=== PATIENT | male | born 1990 ===

== ENCOUNTER 2019-02-08 05:18 | Inpatient (IN) | payer OTHER ==
[~2019-02-08] VITALS: Ht 177.8 cm; Wt 102.1 kg
[2019-02-08] VITALS (12 sets, daily range): BP systolic 102–118; BP diastolic 51–77
[~2019-02-08 05:18] MED LIST: CHLORZOXAZONE500 MG PO; NORCO 10-325 T1 EACH ORAL
[2019-02-08] MEDS ORDERED: LR 1000ml 1,000 ML IVLG SCH (06:32)
--- NOTE | 2019-02-08 06:33 | Anethesia Preoperative Eval ---
Anesthesia Pre-op PMH/ROS General Date of Evaluation: Feb 08, 2019 Time of Evaluation: 07:01 Anesthesiologist: Josey ASA Score: ASA 2 Mallampati Score Class I : Soft palate, uvula, fauces, pillars visible Class II: Soft palate, uvula, fauces visible Class III: Soft palate, base of uvula visible Class IV: Only hard plate visible Mallampati Classification: Class II Surgeon: Ami Diagnosis: Back Pain Surgical Procedure: Right L5-S1 Microdiscectomy, Hemilaminotomy, Baxano Anesthesia History: none Family History: no anesthesia problems Allergies: Coded Allergies: No Known Allergies (Unverified , 02/08/19) Medications: see eMAR Patient NPO?: Yes NPO Date: Feb 07, 2019 NPO Time: 2329 Past Medical History Neurologic/Psychiatric: Reports: other - Panic Attack PSxH Narrative: Gastric Sleeve Anesthesia Pre-op Phys. Exam Physician Exam Last Vital Signs Date Time Temp Pulse Resp B/P (MAP) Pulse Ox O2 Delivery O2 Flow Rate FiO2 02/08/19 05:44 97.8 58 18 115/69 (84) 98 Constitutional: NAD Neurologic: CN 2-12 intact Cardiovascular: RRR Respiratory: CTA Gastrointestinal: S/NT/ND Airway Exam Mallampati Score: Class II MO: full ROM: full Teeth: intact Anesthesia Pre-op A/P Risk Assessment & Plan Assessment: ASA 2 Plan: GA, SED, GlideScope Go Status Change Before Surgery: No Pre-Antibiotics Dru Grams Ancef IV Given Within 1 Hr of Incision: Yes Time Given: 07:21 Zak Dowling MD Feb 08, 2019 06:33
[2019-02-08] MEDS ORDERED: Zemuron 50mg/5ml Inj IV ONE (06:35)
[2019-02-08] MEDS ORDERED: Lidocaine 1% Plain 30 ml INJ ONE (06:41)
[2019-02-08] MEDS ORDERED: Dexamethasone 4mg/ml vial ONE (06:42)
[2019-02-08] MEDS ORDERED: Sodium Chloride 10ml vial INJ ONE (06:42)
[2019-02-08] MEDS ORDERED: Lidocaine 1% MPF 10mg/ml 5ml ONE (06:42)
[2019-02-08] MEDS ORDERED: oxyCODONE HCL/Acetaminophen 5/325mg ORAL PRN (06:45)
[2019-02-08] MEDS ORDERED: Midazolam 2mg/2ml Inj IVP PRN (06:45)
[2019-02-08] MEDS ORDERED: Vancomycin 1gm vial IVPB ONE (06:45)
[2019-02-08] MEDS ORDERED: Ketorolac 30mg Inj IV PRN ×2 (06:45)
[2019-02-08] MEDS ORDERED: Metoclopramide 10mg/2ml Inj IVP PRN ×2 (06:45→07:30)
[2019-02-08] MEDS ORDERED: DiphenhydrAMINE 50mg/ml Inj IVP PRN (06:45)
[2019-02-08] MEDS ORDERED: fentaNYL 100 mcg/2 mL IV PRN (06:45)
[2019-02-08] MEDS ORDERED: Atropine Sulfate 0.4mg/ml inj IVP PRN (06:45)
[2019-02-08] MEDS ORDERED: HYDROcodone/Acetamin 5/325 tab ORAL PRN ×2 (06:45→07:30)
[2019-02-08] MEDS ORDERED: Acetaminophen (Non formulary) 100 ML IV ONE (06:45)
[2019-02-08] MEDS ORDERED: Labetalol 5mg/ml 20ml vial IV PRN (06:45)
[2019-02-08] MEDS ORDERED: HYDROcodone/Acetamin 7.5/325 tab ORAL PRN ×3 (06:45→07:30)
[2019-02-08] MEDS ORDERED: LORazepam Inj 2mg/ml 1ml IV PRN (06:45)
[2019-02-08] MEDS ORDERED: Meperidine 50mg/ml Inj(FOR RIGORS ONLY) IVP PRN (06:45)
[2019-02-08] MEDS ORDERED: Bacitracin 50000 Units Vial ONE (06:46)
[2019-02-08] MEDS ORDERED: Thrombin 5000 units TOPIC ONE ×2 (06:46→08:09)
[2019-02-08] MEDS ORDERED: Gelfoam Size TOPIC ONE (06:46)
[2019-02-08] MEDS ORDERED: Ropivacaine 5mg/ml Vial 30ml INJ ONE (06:46)
[2019-02-08] MEDS ORDERED: Propofol 1,000mg/ 100ml btl IV ONE (07:00)
[2019-02-08] MEDS ORDERED: ceFAZolin sod 2 GM in D5W 110 ML IVPB ONE (07:00)
[2019-02-08] MEDS ORDERED: NS Irrig 1000ml ONE (07:00)
[2019-02-08] MEDS ORDERED: Sterile Water Irrig 1000ml IRRIG ONE (07:00)
[2019-02-08] MEDS ORDERED: LR 1000ml ONE (07:00)
--- NOTE | 2019-02-08 07:23 | Pre-Procedure Note/Attestation ---
Pre-Procedure Note/Attestation Complete Prior to Procedure Planned Procedure: not applicable Procedure Narrative: Right L5S1 microdiscectomy bilateral hemilaminotomy foraminotomy Indications for Procedure Pre-Operative Diagnosis: L5S1 Herniation Attestation I attest that I discussed the nature of the procedure; its benefits; risks and complications; and alternatives (and the risks and benefits of such alternatives ), prior to the procedure, with the patient (or the patient's legal vendor representatives). I attest that, if there was a reasonable possibility of needing a blood transfusion, the patient (or the patient's legal vendor representatives) was given the [facility] standardized written summary, pursuant to the Charli Mary Carmen Blood Safety Act ([place] Health and Safety Code # 1645, as amended). I attest that I re-evaluated the patient just prior to the surgery and that there has been no change in the patient's H&P, except as documented below: David Mueller MD Feb 08, 2019 07:23
--- NOTE | 2019-02-08 07:24 | Brief Operative Note ---
Immediate Post Operative Note Operative Note Chief Complaint: Intractable back pain and radiculopathy Pre-op Diagnosis: L5S1 Herniation Procedure: Right L5S1 microdiscectomy bilateral hemilaminotomy foraminotomy Post-op Diagnosis: same as pre-op Findings: consistent w/pre-op dx studies Surgeon: Ami Reimbursement Counselor: eSrafin Anesthesiologist: Anesthesia: general Specimen: none Complications: none Condition: stable Fluids: IVF Estimated Blood Loss: minimal Drains: none Implant(s) used?: No David Mueller MD Feb 08, 2019 07:24
[2019-02-08] MEDS ORDERED: Morphine Sulfate 2mg/ml Inj(IV/IM USE ONLY) IV PRN (07:30)
[2019-02-08] MEDS ORDERED: Milk of Magnesia 30ml Ud ORAL PRN (07:30)
[2019-02-08] MEDS ORDERED: Chloraseptic Spray 20mL Bottle ORAL PRN (07:30)
[2019-02-08] MEDS ORDERED: Morphine Sulfate 4mg/ml Inj (IV USE ONLY) IV PRN (07:30)
[2019-02-08] MEDS ORDERED: NS Irrig 1000ml IRRIG ONE (08:07)
--- NOTE | 2019-02-08 08:10 | Immediate Post-Op Evaluation ---
Immediate Post-Op Evalulation Immediate Post-Op Evalulation Procedure: Right L5-S1 Microdiscectomy, Hemilaminotomy, Baxano Date of Evaluation: Feb 08, 2019 Time of Evaluation: 09:47 IV Fluids: 800 LR Blood Products: 0 Estimated Blood Loss: 25 Urinary Output: 300 Blood Pressure Systolic: 108 Blood Pressure Diastolic: 59 Pulse Rate: 67 Respiratory Rate: 16 O2 Sat by Pulse Oximetry: 100 Temperature (Fahrenheit): 97.9 Pain Score (1-10): 2 Nausea: No Vomiting: No Complications 0 Patient Status: awake, reacts, patent, extubated, none Hydration Status: adequate Dru grams Ancef IV Given Within 1 Hr of Incision: Yes Time Given: 07:21 Zak Dowling MD Feb 08, 2019 08:10
[2019-02-08] MEDS: Docusate 100mg cap ORAL SCH ×2 (09:00→17:18)
[2019-02-08] MEDS ORDERED: fentaNYL 100 mcg/2 mL IV ONE (09:16)
[2019-02-08] MEDS: Hydromorphone 0.5mg/0.5ml inj IVP PRN ×2 (10:07→10:28)
--- NOTE | 2019-02-08 10:07 | NUR ---
CASE MANAGEMENT:REVIEW 28 YR OLD MALE HERE FOR ELECTIVE SURGERY SI: INTRACTABLE BACK PAIN AND RADICULOPATHY 97.8 67 16 115/69 98% ON RA IS: TO SURGERY FOR: RT L5 S1 MICRODISCECTOMY,BILATERAL HEMILAMINOTOMY FORAMINOTOMY IV ANCEF Q8HRS IV DECADRON Q6HRS IVF@100/HR IV MORPHINE Q3HRS PRN : TO MED/SURG 3 EAST POST OP DCP: RETURN HOME INTERQUAL CRITERIA MET
--- NOTE | 2019-02-08 11:00 | NUR ---
NURSE NOTES: PATIENT HANDOFF RECEIVED FROM STACIE POON.
[2019-02-08] MEDS ORDERED: Naloxone 0.4mg/ml Inj IVP PRN (12:30)
[2019-02-08] MEDS: Morphine Sulfate 4mg/ml Inj (IV USE ONLY) IV PRN ×2 (12:54→15:56)
[2019-02-08] MEDS: NS w/KCl 20mEq 1000ml 1,000 ML IV SCH ×2 (14:06→23:23)
[2019-02-08] MEDS: HYDROmorphone 1mg/ml Carpuject IVP PRN ×3 (14:29→21:03)
[2019-02-08] MEDS: ceFAZolin sod 1 GM in D5W 55 ML IV SCH ×2 (15:30→23:23)
--- NOTE | 2019-02-08 16:01 | NUR ---
P.T NOTE: P.T EVALUATION COMPLETED AND TX INITIATED PER SPINAL PROTOCOL. SEE P.T EVALUATION FOR CURRENT FUNCTIONAL STATUS. SKILLED P.T SERVICE IS WARRANTED TO ENSURE SAFETY AND COMPLIANCE WITH SPINAL PRECAUTIONS.
--- NOTE | 2019-02-08 16:34 | Diagnostic Imaging Report ---
INDICATION: Pain, intraoperative TECHNIQUE: Intraoperative imaging Fluoroscopy time: 16.5 seconds Total dose: 0.03630 mGym2 Total number of images: 6 4 COMPARISON: None FINDINGS: Intraoperative images demonstrate surgical needles are directed over L5 and S1, subsequently had surgical tool projected posterior to the L5-S1 disc. Subsequent images document placement of the Baxano device at L5-S1. IMPRESSION: Intraoperative imaging, as described
[2019-02-08] MEDS: Dexamethasone 4mg/ml vial IVP SCH ×2 (17:17→23:32)
[2019-02-08] MEDS: Docusate Sod/Senna tab ORAL SCH (17:18)
--- NOTE | 2019-02-08 18:00 | Operative Note - Dictated ---
DATE OF OPERATION: 02/08/2019 NOTE: "POOR AUDIO QUALITY" SURGEON: David Mueller MD, Orthopaedic Spine Surgeon. SLEEP TECH SURGEON: Igor Betancourt M.D. ANESTHESIA: General endotracheal anesthesia. PREOPERATIVE DIAGNOSES: 1. Intractable back pain. 2. Intractable leg pain. 3. Worsening radiculopathy. 4. Weakness. 5. Herniated nucleus pulposus, L5-S1 herniation. 6. Neural foraminal stenosis, L5-S1. POSTOPERATIVE DIAGNOSES: 1. Intractable back pain. 2. Intractable leg pain. 3. Worsening radiculopathy. 4. Weakness. 5. Herniated nucleus pulposus, L5-S1 herniation. 6. Neural foraminal stenosis, L5-S1. PROCEDURES PERFORMED: 1. Right-sided L5-S1 microdiscectomy. 2. L5-S1 hemilaminotomy, foraminotomy, and medial facetectomy. 3. L5-S1 neural foraminotomy through a transpedicular intraforaminal approach. 4. Use of intraoperative microscope. 5. Supervision and interpretation of intraoperative fluoroscopy. 6. Supervision and interpretation of somatosensory-evoked potential and free running EMG monitoring. ESTIMATED BLOOD LOSS: Less than 100 mL. COMPLICATIONS: None. INDICATIONS FOR THE PROCEDURE: Shahriar presents for intractable back pain and radiculopathy. The patient tried and failed a prolonged course of conservative management, including but not limited to chiropractic therapy, physical therapy, nonsteroidal anti-inflammatory drugs, medication, ice packs as well as epidural injection. Despite these therapies, the patient still developed recalcitrant pain and elected for definitive management in the form of right-sided L5-S1 microdiscectomy; L5-S1 hemilaminotomy, foraminotomy, and medial facetectomy; L5-S1 neural foraminotomy through a transpedicular intraforaminal approach. We had a long discussion with him regarding definitive surgical treatment options. The patient's MRI demonstrated herniated nucleus pulposus, L5-S1 herniation, and neural foraminal stenosis at L5-S1, and as a result, I felt he would benefit from the discectomy as well as neural foraminotomy at this level. We had a long discussion with the patient regarding the risks, alternatives, and benefits of surgery. Our description of the risks included a discussion in person as well as a signed consent which detailed all pertinent risks and the procedure itself. Briefly, our discussion included but was not limited to infection, bleeding, pseudarthrosis, spinal cord injury, neurovascular injury, dural tear, CSF leak, neuropathy, paralysis, permanent weakness/drop foot, paresthesias blindness, palsy, and weakness. The patient understood there may be a need for revision surgery or additional procedures. Approach-related complications including dysphonia, dysphagia, blindness, permanent vocal cord and neural injury, hematoma, swallowing and breathing difficulty. Medical complications including liver, kidney, shock, and cardiopulmonary failure. Anesthesia complications including , swelling. Damage to the musculature, larynx (voice injury or loss), esophagus (throat), trachea, blood vessels and muscles (muscular sprain) and lungs (pneumothorax) during this surgical procedure. Injury to deeper structures may be temporary or permanent. The patient understood these and elected to proceed. A written and verbal consent was given. We discussed the pros and cons of all the alternatives. We discussed the uncertainties associated with the decision. Afterwards, I assessed the patient's understanding and explored their preferences. All questions were answered and no guarantees were given. Medical clearance was obtained prior to surgery. INTRAOPERATIVE FINDINGS: There was a tear noted in the posterior longitudinal ligament on the right side, which was approximately 20 degrees with PLL through this. There was clear migration of nucleus pulposus tissue which had been encroaching on the exiting and traversing nerve roots at L5-S1 in the neural foraminal length. This was carefully resected. The disc itself was soft, not calcified or hardened in any way. The disc space itself was tall and it was not collapsed. The disc material was mobile and free-flowing with its clear base connecting it to the nuclear tissue itself thereby making it a herniation and not a simple disc bulge. There was neural foraminal stenosis which . DESCRIPTION OF PROCEDURE: Under the benefit of general endotracheal anesthesia and with the assistance of the entire operative team, the patient was moved from the rney onto the operative table in the prone position on a Александр frame. The head was secured and positioned appropriately. Bilateral arms were secured with Gel Pads and foam and all bony prominences were padded. The bilateral lower extremity SCD and ROSEANN hose were placed for DVT prophylaxis. A surgical timeout was called which corroborated our planned procedure. Preoperative antibiotics were administered within 30 minutes of the incision for prophylaxis. Decadron was given for preoperative steroids. Using lateral radiography, the operative level was delineated. An incision was marked based on our interpretation of lateral radiography and afterwards the body was prepped and draped in the usual sterile manner. The family was notified that we were ready to commence surgery and were called in the waiting room hourly for updates. An incision was based on our lateral fluoroscopic image to center the incision at the L5-S1 interspace. The wound was prepped and draped in the usual sterile fashion. Using a scalpel, a midline incision was taken down through the skin and subcutaneous tissues until the overlying hemilamina of L5-S1 were visualized. Next, using meticulous hemostasis, hemilaminotomies were dissected and retractors were placed. Using a [place] dental, we confirmed placement at the L5-S1 interspace. We next turned our attention to our decompression. A standard hemilaminotomy, foraminotomy, medial facetectomy was performed at each level in standard fashion using a Midas-Arpan type AM8 drill bit, straight and angled curettage, and Kerrison 4 rongeurs until the lateral thecal sac margin and traversing nerve root was visualized. All remainders of the ligamentum flavum and lateral bony margins were resected in total with angled curettage and Kerrison 4 rongeurs until the lateral thecal sac margin and traversing nerve root was visualized and decompressed. We next turned our attention toward our L5-S1 microdiscectomy on the right side. A [place] 4 was used to gently mobilize the thecal sac medially and this was held retracted with a bayonetted nerve root retractor. It was at this point that we noted a large broad-based disc protrusion with encroachment dorsally on the thecal sac neural foraminal contents. A bayonet and nerve root retractor was then placed carefully to retract the thecal sac and a discectomy was performed using a combination of a long-handled 15 blade scalpel, downgoing and straight pituitaries, and downgoing curettage. Afterward, the disc space was irrigated twice with 20 mL of antibiotic-impregnated saline. All loose and free-floating disc fragments were carefully resected with a narrow pituitary. Having been satisfied with our decompression after our discectomy of all neural elements, we next turned our attention to our neural foraminoplasty/foraminotomy. This was performed through a transpedicular intraforaminal approach using an access probe followed by a neuro-check device, which confirmed ventral placement of our nerve root. Once we confirmed we were safe, we next turned our attention towards placement of our size 10 file under direct microscopic visualization and under lateral fluoroscopy. Using pre-reciprocation and post-reciprocation imaging, we were able to visualize our direct decompression given the reciprocation allowed for re-creation of the neural foraminal arch at L5-S1. Afterward, hemostasis was obtained with 60 mL of antibiotic-impregnated saline followed by FloSeal and Gelfoam. After sponge and needle count were found to be correct, next we turned our attention to closure. Closure consisted of 1-0 Vicryl in standard interrupted fashion. Zosyn was placed deep to the fascia and superficial to the fascia for antibiotic prophylaxis. Skin closure was performed with 2-0 Vicryl in interrupted fashion followed by a running Monocryl for the skin. Final dressings consisted of Dermabond for the superficial skin, Telfa, and Tegaderm. The patient tolerated the procedure well. The patient was extubated after the conclusion of surgery without incident. We discussed the findings of the surgery with the family upon completion of the case. At this point, the patient will be transferred to the spine floor for further observation. David Mueller M.D. DR: Jona JOB#: [id number] CC:
--- NOTE | 2019-02-08 19:30 | Operative Note - Dictated ---
DATE OF OPERATION: 02/08/2019 NOTE: "POOR AUDIO QUALITY" SURGEON: David Mueller M.D., Orthopaedic Spine Surgeon. BLIND HANGER SURGEON: Igor Betancourt M.D. ANESTHESIA: General endotracheal anesthesia. PREOPERATIVE DIAGNOSES: 1. Intractable back pain. 2. Intractable leg pain. 3. Worsening radiculopathy. 4. Weakness. 5. Herniated nucleus pulposus, L5-S1 herniation. 6. Neural foraminal stenosis, L5-S1. POSTOPERATIVE DIAGNOSES: 1. Intractable back pain. 2. Intractable leg pain. 3. Worsening radiculopathy. 4. Weakness. 5. Herniated nucleus pulposus, L5-S1 herniation. 6. Neural foraminal stenosis, L5-S1. PROCEDURES PERFORMED: 1. Right-sided microdiscectomy. 2. L5-S1 hemilaminotomy, foraminotomy and medial facetectomy. 3. L5-S1 neural foraminotomy through a transpedicular intraforaminal approach. 4. Use of intraoperative microscope. 5. Supervision and interpretation of intraoperative fluoroscopy. 6. Supervision and interpretation of somatosensory-evoked potential and free-running EMG monitoring. ESTIMATED BLOOD LOSS: Less than 100 mL. COMPLICATIONS: None. INDICATIONS FOR THE PROCEDURE: Shahriar presents for intractable back pain and radiculopathy. The patient tried and failed a prolonged course of conservative management, including but not limited to chiropractic therapy, physical therapy, nonsteroidal anti-inflammatory drugs, medication, ice packs as well as epidural injection. Despite these therapies, the patient still developed recalcitrant pain and elected for definitive management in the form of right-sided microdiscectomy; L5-S1 hemilaminotomy, foraminotomy and medial facetectomy; L5-S1 neural foraminotomy through a transpedicular intraforaminal approach. We had a long discussion with him regarding definitive surgical treatment options. The patient's MRI demonstrated herniated nucleus pulposus, L5-S1 herniation; neural foraminal stenosis, L5-S1, and as a result, I felt he would benefit from the discectomy as well as neural foraminotomy at this level. We had a long discussion with the patient regarding the risks, alternatives, and benefits of surgery. Our description of the risks included a discussion in person as well as a signed consent which detailed all pertinent risks and the procedure itself. Briefly, our discussion included but was not limited to infection, bleeding, pseudarthrosis, spinal cord injury, neurovascular injury, dural tear, CSF leak, neuropathy, paralysis, permanent weakness/drop foot, paresthesias blindness, palsy, and weakness. The patient understood there may be a need for revision surgery or additional procedures. Approach-related complications including dysphonia, dysphagia, blindness, permanent vocal cord and neural injury, hematoma, swallowing and breathing difficulty. Medical complications including liver, kidney, shock, and cardiopulmonary failure. Anesthesia complications including , swelling. Damage to the musculature, larynx (voice injury or loss),esophagus (throat), trachea, blood vessels and muscles (muscular sprain) and lungs (pneumothorax) during this surgical procedure. Injury to deeper structures may be temporary or permanent. The patient understood these and elected to proceed. A written and verbal consent was given. We discussed the pros and cons of all the alternatives. We discussed the uncertainties associated with the decision. Afterward, I assessed the patient's understanding and explored his preferences. All questions were answered and no guarantees were given. Medical clearance was obtained prior to surgery. INTRAOPERATIVE FINDINGS: There was a tear noted in the posterior longitudinal ligament on the right side which was approximately 20 degrees through this. There was clear migration of nuclear pulposus tissue which has been encroaching on the exiting and traversing nerve roots at L5-S1 and the neural foraminal elements. This was carefully resected. The disc itself was soft, not calcified or hardened in any way. The disc space itself was tall. It was not collapsed. The disc material was mobile and free-flowing with its base connecting it to the nuclear tissue itself thereby making it a herniation and not a simple disc bulge. There was neural foraminal stenosis which . DESCRIPTION OF PROCEDURE: Under the benefit of general endotracheal anesthesia and with the assistance of the entire operative team, the patient was moved from the rney onto the operative table in the prone position on a Александр frame. The head was secured and positioned appropriately. Bilateral arms were secured with Gel Pads and foam and all bony prominences were padded. The bilateral lower extremity SCD and ROSEANN hose were placed for DVT prophylaxis. A surgical timeout was called which corroborated our planned procedure. Preoperative antibiotics were administered within 30 minutes of the incision for prophylaxis. Decadron was given for preoperative steroids. Using lateral radiography, the operative levels were delineated. An incision was marked based on our interpretation of lateral radiography and afterward the body was prepped and draped in the usual sterile manner. The family was notified that we were ready to commence surgery and were called in the waiting room hourly for updates. An incision was based on our lateral fluoroscopic image to center the incision at the L5-S1 interspace. The wound was prepped and draped in the usual sterile fashion. Using a scalpel, a midline incision was taken down through the skin and subcutaneous tissues until the overlying hemilamina of L5-S1 were visualized. Next, using meticulous hemostasis, hemilamotomies were dissected and retractors were placed. Using a [place] dental, we confirmed placement at the L5-S1 interspace. We next turned our attention to our decompression. A standard hemilaminotomy, foraminotomy, medial facetectomy was performed at each level in standard fashion using a Midas-Arpan type AM8 drill bit, straight and angled curettage, and Kerrison 4 rongeurs until the lateral thecal sac margin and traversing nerve root was visualized. All remainders of the ligamentum flavum and lateral bony margins were resected in total with angled curettage and Kerrison 4 rongeurs until the lateral thecal sac margin and traversing nerve root was visualized and decompressed. We next turned our attention toward our L5-S1 microdiscectomy on the right side. A [place] 4 was used to gently mobilize the thecal sac medially and this was held retracted with a bayonetted nerve root retractor. It was at this point that we noted a large broad-based disc protrusion with encroachment dorsally on the thecal sac neural foraminal contents. A bayonet and nerve root retractor was then placed carefully to retract the thecal sac and a discectomy was performed using a combination of a long-handled 15 blade scalpel, downgoing and straight pituitaries and downgoing curettage. Afterward, the disc space was irrigated twice with 20 mL of antibiotic-impregnated saline. All loose and free-floating disc fragments were carefully resected with a narrow pituitary. Having been satisfied with our decompression after our discectomy of all neural elements, we next turned our attention to our neural foraminoplasty/foraminotomy. This was performed through a transpedicular intraforaminal approach using an access probe followed by a neuro-check device, which confirmed ventral placement of our nerve root. Once we confirmed we were safe, we next turned our attention towards placement of our size 10 file under direct microscopic visualization and under lateral fluoroscopy. Using pre-reciprocation and post-reciprocation imaging, we were able to visualize our direct decompression given the reciprocation allowed for re-creation of the neural foraminal arch at L5-S1. Afterward, hemostasis was obtained with 60 mL of antibiotic-impregnated saline followed by FloSeal and Gelfoam. After sponge and needle count were found to be correct, next we turned our attention to closure. Closure consisted of 1-0 Vicryl in standard interrupted fashion. Zosyn was placed deep to the fascia and superficial to the fascia for antibiotic prophylaxis. Skin closure was performed with 2-0 Vicryl in interrupted fashion followed by a running Monocryl for the skin. Final dressings consisted of Dermabond for the superficial skin, Telfa, and Tegaderm. The patient tolerated the procedure well. The patient was extubated after the conclusion of surgery without incident. We discussed the findings of the surgery with the family upon completion of the case. At this point, the patient will be transferred to the spine floor for further observation. David Mueller M.D. DR: Jona JOB#: [id number] CC:
--- NOTE | 2019-02-08 19:30 | NUR ---
NURSE NOTES: Receive a report from STACIE Abudl. Pt is awake and alert. No acute distress noted. Op site is clear without bleeding signs. Leave call light within reach. Will continue to monitor.
--- NOTE | 2019-02-08 19:45 | NUR ---
HAND-OFF: Report given to STACIE FOX.PATIENT RECEIVED RESTING IN BED WITH PRESCRIBED FLUIDS RUNNING AT 100ML/HOUR. NO PHYSICAL SIGNS OF DISTRESS.
--- NOTE | 2019-02-08 20:02 | Cardiology Progress Note ---
Assessment/Plan Assessment/Plan [id number] seen at request of dr radha coyne well pos top dvt ppx early ambulation pain meds antiemetic as needed home soon Objective Last 24 Hour Vital Signs Date Time Temp Pulse Resp B/P (MAP) Pulse Ox O2 Delivery O2 Flow Rate FiO2 02/08/19 11:30 97.6 50 18 103/56 (72) 96 02/08/19 11:00 97.4 61 18 115/62 (79) 97 02/08/19 10:58 97.9 02/08/19 10:43 97.9 61 18 102/55 96 Nasal Cannula 3 02/08/19 10:28 63 18 107/57 97 Nasal Cannula 3 02/08/19 10:17 69 18 108/61 97 Nasal Cannula 3 02/08/19 10:07 63 14 112/64 98 Nasal Cannula 3 02/08/19 09:56 59 15 106/54 99 Simple Mask 6 02/08/19 09:46 65 15 106/59 99 Simple Mask 6 02/08/19 09:41 64 17 102/51 99 Simple Mask 6 02/08/19 09:36 97.9 64 14 108/77 99 Simple Mask 6 02/08/19 09:34 67 16 100 02/08/19 05:44 97.8 58 18 115/69 (84) 98 Intake and Output 02/07/19 02/08/19 19:00 07:00 # Voids 1 Kadeem Delcid MD Feb 08, 2019 20:02
--- NOTE | 2019-02-08 21:00 | NUR ---
NURSE NOTES: Administer pain medication as ordered. Reapply SCDs on bilateral legs. Encourage deep breathing and coughing. Will continue to monitor.
--- NOTE | 2019-02-08 22:30 | Consultation ---
DATE OF CONSULTATION: 02/08/2019 INTERNAL MEDICINE AND CARDIOLOGY EVALUATION CONSULTING PHYSICIAN: Kadeem Delcid M.D. REFERRING PHYSICIAN: David Mueller M.D. REASON FOR REFERRAL: Postoperative medical care. HISTORY OF PRESENT ILLNESS: This is a young gentleman with history of herniated nucleus pulposus with pain and radiculopathy, who underwent microdiskectomy and hemilaminotomy by Dr. Mueller. He asked me to follow the patient postoperatively for medical issues. The patient is now being seen. He seems to be doing well. He has pain postoperatively. He does not have any chest pain or shortness of breath. No PND. No orthopnea. No palpitations. No dizziness or lightheadedness. No sore throat. PAST MEDICAL HISTORY: Fairly unremarkable except for the fact that he has obesity. He underwent gastric sleeve by a number of years ago resulting in 130 pounds of weight loss at that time. He otherwise denies any diabetes, high blood pressure, or high cholesterol. No heart attack, cancer, stroke, hepatitis, tuberculosis, asthma, emphysema, ulcers, kidney problems, liver problems, thyroid problems, anemia, arthritis, HIV, AIDS, or blood clots. ALLERGIES: He is not allergic to any medications. SOCIAL HISTORY: He smokes one pack a day. He does use marijuana once every few days. No alcohol. Denies any other drug use. REVIEW OF SYSTEMS: GASTROINTESTINAL: He denies any nausea or vomiting. He has already had passed gas. He did not have a bowel movement. GENITOURINARY: He has already urinated postoperatively. PULMONARY: Denies any coughing, wheezing, or sore throat. CONSTITUTIONAL: The patient denies any fevers, chills, or night sweats. PHYSICAL EXAMINATION: GENERAL: Shows to be a young gentleman, in no respiratory distress. NECK: Supple. No jugular venous distention. LUNGS: Clear to auscultation and percussion. CARDIAC: S1 is normal. S2 is normal. Regular rate and rhythm. No heaves, thrills, or gallops noted. ABDOMEN: Soft, nontender. Positive bowel sounds. EXTREMITIES: There is no clubbing, cyanosis, or edema. NEUROLOGICAL: He is awake, alert, and responsive. LABORATORY AND DIAGNOSTIC DATA: White count of 10.3, hemoglobin 15.3, and platelet count 201,000. Sodium is 140, potassium 3.9, chloride 104, bicarb 28, BUN 8, and creatinine 0.7. Glucose of 97. Calcium is 9.2. INR is 1 and PTT of 28. Urinalysis is fairly unremarkable. His telemetry intraoperatively shows sinus rhythm. His preop evaluation including EKG that was performed showing nonspecific ST segment changes and sinus rhythm. A chest x-ray shows no evidence of acute findings. ASSESSMENT AND PLAN: 1. Herniated nucleus pulposus, now status post microdiskectomy by Dr. Mueller. 2. Obesity, status post gastric sleeve. Dr. Mueller, the patient was seen in internal medicine consultation. He blood pressure for which IV fluids have been administered. He has already walked to the bathroom. He is ambulating. He does not have a Mendoza catheter. Pneumatic compression stockings were used for DVT prophylaxis. Early ambulation to help with that and hopefully once he has a bowel movement possibly he can go home tomorrow morning. Kadeem Delcid M.D. DR: NAE JOB#: [id number] CC:
[2019-02-09] VITALS: BP 113/65
[2019-02-09] MEDS: HYDROmorphone 1mg/ml Carpuject IVP PRN (03:59)
[2019-02-09 04:54] VITALS: BP 126/66
[2019-02-09] MEDS: ceFAZolin sod 1 GM in D5W 55 ML IV SCH (06:22)
[2019-02-09] MEDS: Dexamethasone 4mg/ml vial IVP SCH (06:22)
--- NOTE | 2019-02-09 07:30 | NUR ---
NURSE NOTES: Received report from o RN. Patient is asleep during rounds, no acute distress noted, RR even and unlabored, SCD's in place, IVF running per order. Patient's partner at bedside. Side rails upx2, bed low and locked, call light in reach. Will continue to monitor.
--- NOTE | 2019-02-09 07:40 | NUR ---
HAND-OFF: Report given to STACIE Wright. Done rounds.
[2019-02-09 08:00] VITALS: BP 126/67
[2019-02-09] MEDS: Docusate 100mg cap ORAL SCH (08:30)
[2019-02-09] MEDS: NS w/KCl 20mEq 1000ml 1,000 ML IV SCH (08:30)
[2019-02-09] MEDS: Docusate Sod/Senna tab ORAL SCH (08:33)
[2019-02-09 09:20] VITALS: BP 124/76
--- NOTE | 2019-02-09 09:20 | 48 Hour Post Anesthesia Eval ---
Post Anesthesia Evaluation Procedure: Right L5-S1 Microdiscectomy, Hemilaminotomy, [place] Date of Evaluation: Feb 09, 2019 Time of Evaluation: 09:19 Blood Pressure Systolic: 124 0: 76 Pulse Rate: 82 Respiratory Rate: 20 Temperature (Fahrenheit): 97.6 O2 Sat by Pulse Oximetry: 98 Airway: patent Nausea: No Vomiting: No Pain Intensity: 3 Hydration Status: adequate Cardiopulmonary Status: stable Mental Status/LOC: patient returned to baseline Follow-up Care/Observations: n/a Post-Anesthesia Complications: none Follow-up care needed: ready to discharge Damion Claire MD Feb 09, 2019 09:20
--- NOTE | 2019-02-09 10:15 | NUR ---
NURSE NOTES: Patient discharged, no acute distress on discharge. Pain well managed with PO [place]. Patient provided with discharge education/handouts, education reviewed with patient and his , both report understanding of provided education. IV removed intact. Patient escorted to private vehicle via wheelchair by DERRICK WORKER.
--- NOTE | 2019-02-11 12:11 | Discharge Summary ---
Discharge Summary Hospital Course Date of Admission Feb 08, 2019 at 05:18 Date of Discharge Feb 09, 2019 at 10:37 Admitting Diagnosis Herniated nucleus pulposus, L5-S1 Neural foraminal stenosis L5-S1. Reason for Hospitalization: Elective surgery HPI Shahriar Gallegos is a 28 year old male who was admitted on Feb 08, 2019 at 05: 18 for Herniated Nucleus Pulposus,Pain, Radiculopathy Consultations Dr. Delcid- IM/cardio Procedures s/p 02/08/[address] Mueller 1. Right-sided microdiscectomy. 2. L5-S1 hemilaminotomy, foraminotomy and medial facetectomy. 3. L5-S1 neural foraminotomy through a transpedicular intraforaminal approach. 4. Use of intraoperative microscope. 5. Supervision and interpretation of intraoperative fluoroscopy. 6. Supervision and interpretation of somatosensory-evoked potential and free-running EMG monitoring. Hospital Course status post surgery course of recovery uneventful initially IV fluids s/p perioperative antibiotics and steroids neurovascular status closely monitored, stable incision clean, dry , and intact pain management was addressed ; pain controlled remained hemodynamically stable ambulated with PT fall precautions maintained; safe for ambulation DVT prophylaxis provided with SCD use of incentive spirometry was encouraged while in the bed tolerated diet , IV fluids discontinued GI prophylaxis provided antiemetics were on board as needed voided freely bowel regimen instituted patient was stable for discharge discharge instructions provided follow up with surgeon in clinic as advised by surgeon FINAL DIAGNOSES Herniated nucleus pulposus, L5-S1 herniation Neural foraminal stenosis, L5-S1. s/p Right sided L5S1 microdiscectomy, bilateral hemilaminotomy , foraminotomy Obesity , history of gastric sleeve. Discharge Medications Continued Medications: Chlorzoxazone (Chlorzoxazone) 500 Mg Tablet 500 MG PO BID, TAB (This prescription has been renewed) Hydrocodone Bit/Acetaminophen 10-325* ([place] 10-325*) 1 Each Tablet 1 TAB ORAL Q4H PRN for For Pain, #10 TAB 0 Refills (This prescription has been renewed) PRN PAIN Discharge Condition Upon Discharge: stable Discharge Disposition Patient was discharged home Discharge Instructions Discharge Instructions Special Instructions I have been assigned to complete a D/C Summary on this account. I was not involved in the patient management Madalyn Meraz NP Feb 11, 2019 12:11
== END 2019-02-09 10:37 | disposition home or self-care (01) | DRG 520 ==
LOC: SDSOVERFLO 05:18 → 3E 12:29
PROC: 0SB40ZZ Excision of Lumbosacral Disc, Open Approach (ICD-10-PCS; principal; 2019-02-08 07:00)
PROC: 01NB0ZZ Release Lumbar Nerve, Open Approach (ICD-10-PCS; principal; 2019-02-08 07:00)
DX: M51.17 Intervertebral disc disorders with radiculopathy, lumbosacral region (principal); M48.07 Spinal stenosis, lumbosacral region; E66.9 Obesity, unspecified; Z98.84 Bariatric surgery status; Z68.32 Body mass index [BMI] 32.0-32.9, adult
CPT/HCPCS: 36415; 71045; 72020; 76000; 80048; 81001; 85025; 85610; 85730; 86850; 86900; 86901; 87081; 94003; 94150; C9399; J2405